=== PATIENT | male | born 2000 | race Two or more races ===

== ENCOUNTER 2024-12-04 17:46 | Emergency (ER) | payer OTHER ==
[~2024-12-04] VITALS: Ht 182.9 cm; Wt 73.0 kg
[2024-12-04] MEDS ORDERED: NORFLEX100MG PO (20:44)
[2024-12-04] MEDS ORDERED: DEXAMETHASONE SODIUM PHOSPHATE 4 MG/ML VIAL IM STA (20:46)
[2024-12-04] MEDS ORDERED: ORPHENADRINE CITRATE 30 MG/ML AMPUL IM STA (20:46)
[2024-12-04] MEDS ORDERED: KETOROLAC TROMETHAMINE 60 MG VIAL IM STA (20:47)
[2024-12-04] MEDS ORDERED: ORPHENADRINE CITRATE 30 MG/ML AMPUL ONE (21:19)
[2024-12-04] MEDS ORDERED: KETOROLAC TROMETHAMINE 30 MG VIAL ONE (21:19)
[2024-12-04] MEDS ORDERED: DEXAMETHASONE SODIUM PHOSPHATE 4 MG/ML VIAL ONE (21:20)
== END 2024-12-04 22:13 | disposition home or self-care (01) ==
LOC: ER 17:48
DX: M54.9 Dorsalgia, unspecified (principal); Z91.030 Bee allergy status; X50.9XXA Other and unspecified overexertion or strenuous movements or postures, initial encounter; Y93.68 Activity, volleyball (beach) (court); Y92.832 Beach as the place of occurrence of the external cause